=== PATIENT | male | born 1945 | race Caucasian/White ===

== ENCOUNTER 2021-08-29 12:38 | Emergency (ER) | payer MEDICARE, OTHER, SELFPAY ==
[2021-08-29] VITALS (13 sets, daily range): BP systolic 178–231; BP diastolic 87–119; PULSE 77–113; RESP 9–18; TEMP 36.8; O2SAT 97–100
--- NOTE | ~2021-08-29 | CT_ITS ---
EXAMINATION: CT brain wo con DATE: 08/29/2021 13:45 INDICATION: Dizziness. Near-syncope. TECHNIQUE: Computed tomography (CT) of the head was performed without intravenous contrast. The mA wa s adjusted according to patient size. Iterative reconstruction technique was employed. Exam dose: 60 5.33 mGy-cm total exam DLP. COMPARISON: None FINDINGS: No intracranial mass lesion or hemorrhage or cerebrovascular accident. No midline shift or mass effect. There is nonspecific diminished attenuation of the cerebral white matter, likely due to chronic small vessel ischemic changes. There is mild cerebral cortical atrophy, predominating in the frontal regio ns. There is mild focal soft tissue swelling primarily in the posterior aspect of the right sphenoid sinu s. Included paranasal sinuses and the mastoid air cells are otherwise unremarkable. No fracture or bone destruction of the cranial vault. IMPRESSION: Mild cerebral atrophy and chronic nonspecific changes of the white matter likely due to chronic small vessel ischemic changes No acute intracranial finding Reviewed, dictated and finalized at [facility]. Reviewed, dictated and finalized at [facility]. FITTER
--- NOTE | 2021-08-29 12:57 | ECG_ITS ---
Measurements Intervals [place] Rate: 79 P: 55 [place]: 220 QRS: -26 QRSD: 109 T: 38 QT: 371 QTc: 426 Interpretive Statements SINUS RHYTHM WITH FIRST DEGREE AV BLOCK POSSIBLE LEFT ATRIAL ENLARGEMENT INCOMPLETE RIGHT BUNDLE BRANCH BLOCK POSSIBLE LEFT VENTRICULAR HYPERTROPHY BASELINE ARTIFACT- II, III, AVR, AVL, AVF, V1-V6 ABNORMAL ECG Electronically Signed On 08-29-2021 15:16:25 [employer] CONTACT by Power Montelongo D.O.
--- NOTE | 2021-08-29 13:15 | ED.SYNCOPE ---
HPI - Syncope General Chief Complaint: Dizziness Stated Complaint: syncope and HTN Time Seen by Provider: 08/29/21 12:53 Source: patient Mode of arrival: ambulatory Limitations: no limitations History of Present Illness HPI narrative: Patient is a 75-year-old male complaining of feeling faint accompanied by elevated blood pressure that started prior to arrival. Patient denies any syncopal episode. Patient states that he does not have any medical problems, no history of hypertension. Patient states that he is feeling better now, currently denies any symptoms. Patient denies any dizziness, headache, speech or visual disturbance, focal weakness or numbness, chest pain, shortness of breath, abdominal pain, nausea, vomiting, fever or chills. Related Data Allergies Allergy/AdvReac Type Severity Reaction Status Date / Time ampicillin Allergy Unknown Unknown Verified 08/29/21 12:42 Penicillins Allergy Unknown Verified 08/29/21 12:42 Review of Systems Review of Systems: All systems reviewed & are unremarkable except as noted in HPI and below Constitutional: Constitutional: Denies body ache(s), Denies chills, Denies excessive sweating, Denies fatigue, Denies fever(s), Denies headache(s), Denies lethargy, Denies malaise, Denies weakness and Denies weight loss Eyes: Eyes: Denies blurry vision, Denies change in vision and Denies loss of vision ENT: Denies dizziness, Denies ear discharge, Denies headache(s), Denies lip swelling, Denies epistaxis, Denies nasal congestion, Denies neck pain, Denies throat swelling and Denies tongue swelling Cardiovascular: Cardiovascular: Denies chest pain, Denies chest pain at rest, Denies chest pain with activity, Denies diaphoresis, Denies rapid heart rate, Denies edema, Denies irregular heart rhythm, Denies lightheadedness, Denies palpitations, Denies dyspnea and Denies dyspnea on exertion Respiratory: Respiratory: Denies chest congestion, Denies cough, Denies hemoptysis, Denies dyspnea and Denies dyspnea on exertion Gastrointestinal: Gastrointestinal: Denies abdominal pain, Denies melena, Denies hematochezia, Denies diarrhea, Denies nausea, Denies vomiting and Denies hematemesis Musculoskeletal: Musculoskeletal: Denies abnormal gait, Denies deformity, Denies joint swelling, Denies limited range of motion, Denies neck pain and Denies numbness Neurologic: Denies Abnormal speech present, Denies abnormal gait, Denies confusion, Denies dizziness, Denies headache(s), Denies focal weakness, Denies loss of vision, Denies numbness, Denies Other visual disturbances, Denies Sensory deficit (Neuro) and Denies weakness Psychiatric: Psychiatric: Denies confusion, Denies depression, Denies auditory hallucinations, Denies homicidal ideation and Denies suicidal ideation Endocrine: Endocrine: Denies cold intolerance, Denies excessive sweating, Denies fatigue, Denies heat intolerance and Denies palpitations Hematologic/Lymphatic: Hematologic/Lymphatic: Denies easy bleeding and Denies easy bruising Allergic/Immunologic: Allergic/Immunologic: Denies lip swelling, Denies throat swelling and Denies tongue swelling PMFSH Past Medical History Medical History Allergies Dizziness Heartburn High cholesterol Hypertension Snoring Tumor Surgical History Surgical History History of dental surgery Family History Family History Mother Depression Family history of suicide, Onset Age: 71 Cerebrovascular accident Sibling Family history of lymphoma, Onset Age: 71 Father Family history of congestive heart failure, Onset Age: 95 Social History Social History Smoking status: Never smoker Second hand tobacco smoke exposure: No Alcohol intake: never Substance use: never Substance use type: does not us
[2021-08-29 13:21] LABS: Basophils Absolute Auto 0.1 K/mm3 (0.0-0.1); Basophils Percent Auto 0.7 % (0.2-1.2); Eosinophils Absolute Auto 0.3 K/mm3 (0-0.3); Eosinophils Percent Auto 3.9 % (0-4.4); Hematocrit 46.7 % (42.0-52.0); Hemoglobin 15.7 g/dL (14.0-18.0); Immature Granulocyte Absolute 0.04 K/mm3 (0.00-0.031); Immature Granulocyte Percent A 0.5 % (0-0.5); Lymphocytes Percent Auto 13.2 % (18.3-44.2); Mean Corpuscular HGB Conc 33.6 g/dl (32-36); Mean Corpuscular Hemoglobin 29.5 pg (26-34); Mean Corpuscular Volume 87.6 fl (80-100); Mean Platelet Volume 7.8 fl (7.4-10.4); Monocytes Absolute Auto 0.8 K/mm3 (0.1-0.6); Monocytes Percent Auto 9.4 % (2.6-8.5); Neutrophils Percent Auto 72.3 % (45.5-73.1); Platelet Count Result 247 k/mm3 (150-375); Red Blood Count 5.33 M/mm3 (4.6-6.20); Red Cell Distribution Width 12.6 % (11.5-14.5); White Blood Count 8.4 K/mm3 (4.5-10.0)
[2021-08-29] MEDS: LABETALOL HCL INJ 100 MG/20 ML VIAL 20 MG IV PUSH (13:38)
[2021-08-29 13:39] LABS: Anion Gap 8 mmol/L (8-16); Blood Urea Nitrogen 12 mg/dL (9-20); Calcium 9.8 mg/dL (8.4-10.2); Carbon Dioxide 26 mmol/L (22-30); Chloride 103 mmol/L (98-107); Estimated CRCL calculation 82 ml/min; Estimated Glomerular Filt Rate > 60; Glucose 113 mg/dL (65-110); Potassium 4.2 mmol/L (3.4-5.0); Sodium 137 mmol/L (137-145)
[2021-08-29 13:49] LABS: Troponin I < 0.012 ng/mL (0.000-0.034)
[2021-08-29] MEDS: hydrALAZINE HCL 20 MG/ML VIAL 10 MG IV PUSH (15:17)
== END 2021-08-29 16:44 | disposition home or self-care (01) ==
PROVIDERS: Emergency Provider Emergency Medicine; PCP Internal Medicine
DX: I16.0 Hypertensive urgency (principal); E78.00 Pure hypercholesterolemia, unspecified; R12 Heartburn; I44.0 Atrioventricular block, first degree; I45.10 Unspecified right bundle-branch block; R94.31 Abnormal electrocardiogram [ECG] [EKG]
CPT/HCPCS: 36415; 70450; 80048; 84484; 85025; 93005; 96374; 96375; 99284; J0360

== ENCOUNTER 2023-01-10 15:15 | Observation (INO) | payer MEDICARE, OTHER, SELFPAY ==
--- NOTE | ~2023-01-10 | CT_ITS ---
EXAMINATION: CT cervical spine w con DATE: 01/10/2023 17:25 INDICATION: Erythema and midline tenderness to C7. TECHNIQUE: Computed tomography (CT) of the cervical spine was performed with 100 mL Omnipaque-350 int ravenous contrast. Automated exposure control and iterative reconstruction technique were employed. T he dose-length product was 459.36 mGy-cm. COMPARISON: None FINDINGS: 22 degree cervical dextroscoliosis. There is reversal of the normal lordosis in the lower cervical sp ine. Vertebral body heights are normal. No acute fractures. Severe disc height loss with degenerative endplate changes at C4-C5, C6-C7 and C7-T1. Moderate disc height loss at C2-C3, C3-C4, C5-C6 and T1- T2. Mild disc height loss at T2-3. Disc bulge at C3-C4 and posterior endplate osteophytes at C4-C5 th rough C7-T1 resulting in multilevel mild central canal stenosis. There is multilevel severe cervical uncovertebral and left-sided predominant facet osteoarthritis. There is likely fusion across the left C4-C5 and C5-C6 facet joints. This contributes to moderate to severe neural foraminal stenosis on th e left at C3-C4. There is additional mild to moderate left-sided predominant cervical neural foramina l stenosis. Subcutaneous edema surrounding a 3.8 x 3.8 x 2.4 cm loculated rim-enhancing gas and fluid collection in the subcutaneous fat overlying the C7 and T1 spinous processes consistent with abscess and surroun ding cellulitis. Subcutaneous fat remains between the abscess in the posterior margin of the spinous process. Cervical soft tissues are unremarkable. Visualized apices of lungs are clear.. No more remot e soft tissue gas identified. IMPRESSION: 1. 0.8 x 3.8 x 2.4 similar loculated rim-enhancing gas and fluid collection in the subcutaneous fat o verlying C7 and T1 spinous processes consistent with abscess and surrounding cellulitis. 2. Several dextroscoliosis with severe spondylosis. Reviewed, dictated and finalized at [facility]. IMPRESSION: 1. 0.8 x 3.8 x 2.4 similar loculated rim-enhancing gas and fluid collection in the subcutaneous fat overlying C7 and T1 spinous processes consistent with absc ess and surrounding cellulitis. 2. Several dextroscoliosis with severe spondylosis.
[2023-01-10 15:16] VITALS: BP 187/92; PULSE 109; RESP 18; TEMP 36.8; O2SAT 100
--- NOTE | 2023-01-10 16:30 | ED.SKABFB ---
HPI - Skin/Abscess/Foreign Bdy General Chief complaint: Skin/Abscess/Foreign Body Stated complaint: Cyst Time Seen by Provider: 01/10/23 16:15 History of Present Illness HPI narrative: Patient is a 77-year-old male here for evaluation of redness, pain and swelling to his upper back for the past day. Patient states that he has a history of a benign bony tumor and it presented in similar fashion. He states the area is painful to touch and did have some spontaneous white drainage this morning. He denies any fevers, chills, nausea, vomiting, unilateral weakness, numbness or tingling. Related Data Home Medications Medication Instructions Recorded Confirmed aspirin 81 mg tablet,delayed 81 mg PO DAILY 11/14/21 04/28/22 release (Adult Low Dose Aspirin) Allergies Allergy/AdvReac Type Severity Reaction Status Date / Time ampicillin Allergy Unknown Unknown Verified 11/10/22 12:48 Penicillins Allergy Unknown Verified 11/10/22 12:48 valsartan AdvReac Other Verified 11/10/22 12:48 Review of Systems Review of Systems: Gen.: Denies fevers or chills Eyes: Denies eye pain or visual change ENT: Denies congestion Respiratory: Denies shortness of breath or cough CV: Denies chest pain or palpitations GI: Denies abdominal pain nausea, emesis or diarrhea denies burning, urgency, frequency or hematuria Musculoskeletal: Denies back pain or muscle pain Neuro: Denies numbness, tingling, weakness or focal weakness Skin: Reports redness and swelling to back Except as documented, all other systems reviewed and negative PMFSH Past Medical History Medical History Allergies Dizziness Heartburn High cholesterol Hypertension Snoring Tumor Surgical History Surgical History History of dental surgery Family History Family History Mother Depression Family history of suicide, Onset Age: 71 Cerebrovascular accident Sibling Family history of lymphoma, Onset Age: 71 Father Family history of congestive heart failure, Onset Age: 95 Social History Social History Smoking status: Never smoker Second hand tobacco smoke exposure: No Alcohol intake: never Substance use: never Substance use type: does not use Living arrangements: with family Occupation/Education: retired Additional occupation/education comments: Worked for [employer] Gender identity (if verbalized by the patient): Male Exam Narrative: APPEARANCE: Well appearing, no pain in distress, well-nourished. Head: Normocephalic and atraumatic. EYES: PERRLA/EOMI, conjunctivae clear NOSE: No nasal drainage EARS: External ear normal in appearance THROAT: Oropharynx is clear. Mucous membranes are moist. NECK: Supple. No adenopathy, no masses. RESPIRATORY: Airway patent, respirations nonlabored. Clear to auscultation bilaterally, no rales, rhonchi, wheezing. CARDIOVASCULAR: Regular rate and rhythm without murmurs, rubs, or gallops. ABDOMINAL: Normoactive bowel sounds. Soft, nontender, nondistended. No rebound tenderness or guarding. MUSCULOSKELETAL: Extremities are warm and well-perfused. Moves all extremities well. No edema. NEURO: Normal speech. No focal neurologic deficits. SKIN: There is an extensive area of dark red erythema to the midline of the lower cervical and upper thoracic spine that is tender to palpation, measuring 10 x 15 cm. There is no fluctuance to palpation but there is some induration to the center that is tender to palpation, no active drainage or drainage expressed with manipulation PSYCHIATRIC: Normal affect/mood. Course Vital Signs Vital signs: Vital Signs Temperature 98.2 F 01/10/23 15:16 Pulse Rate 109 H 01/10/23 15:16 Respiratory Rate 18 01/10/23 15:16 Blood Pressure 1
[2023-01-10] MEDS: CLINDAMYCIN 600 MG/D5W 50 ML 600 MG/50 ML PIGGYBACK 100 MG IVPB (16:55)
[2023-01-10 17:04] LABS: Basophils Percent Auto 0.2 % (0.2-1.2); Eosinophils Absolute Auto 0.1 K/mm3 (0-0.3); Eosinophils Percent Auto 0.8 % (0-4.4); Hematocrit 42.9 % (42.0-52.0); Hemoglobin 14.2 g/dL (14.0-18.0); Immature Granulocyte Absolute 0.09 K/mm3 (0.00-0.031); Immature Granulocyte Percent A 0.5 % (0-0.5); Lymphocytes Absolute Auto 1.32 K/mm3 (0.9-3.2); Mean Corpuscular HGB Conc 33.1 g/dl (32-36); Mean Corpuscular Hemoglobin 28.6 pg (26-34); Mean Corpuscular Volume 86.3 fl (80-100); Mean Platelet Volume 7.7 fl (7.4-10.4); Monocytes Absolute Auto 1.7 K/mm3 (0.1-0.6); Monocytes Percent Auto 10.1 % (2.6-8.5); Neutrophils Absolute Auto 13.3 K/mm3 (1.3-6.7); Neutrophils Percent Auto 80.4 % (45.5-73.1); Platelet Count Result 262 k/mm3 (150-375); Red Blood Count 4.97 M/mm3 (4.6-6.20); Red Cell Distribution Width 12.5 % (11.5-14.5); White Blood Count 16.5 K/mm3 (4.5-10.0)
[2023-01-10 17:12] LABS: Estimated Glomerular Filt Rate > 60
[2023-01-10 17:15] LABS: Alanine Aminotransferase 23 U/L (6-50); Albumin Level 4.6 g/dL (3.5-5.1); Alkaline Phosphatase 79 U/L (38-126); Anion Gap 8 mmol/L (8-16); Aspartate Amino Transferase 26 U/L (17-59); Bilirubin,Total 0.6 mg/dL (0.2-1.3); Blood Urea Nitrogen 10 mg/dL (9-20); Calcium 9.4 mg/dL (8.4-10.2); Carbon Dioxide 24 mmol/L (22-30); Chloride 102 mmol/L (98-107); Estimated Glomerular Filt Rate > 60; Glucose 115 mg/dL (65-110); Potassium 4.2 mmol/L (3.4-5.0); Sodium 134 mmol/L (137-145)
[2023-01-10 17:45] VITALS: BP 178/99; PULSE 99; RESP 15; O2SAT 98
[2023-01-10] MEDS: SODIUM CHLORIDE 0.9% IV 1,000 ML 999 ML IV CONT (18:31)
[2023-01-10 18:52] LABS: Erythrocyte Sedimentation Rate 45 mm/hr (0-20)
[2023-01-10 19:02] LABS: CRP 5.1 mg/dL (<1.0)
--- NOTE | 2023-01-10 20:04 | PM.IMHP ---
H&P: HPI History of Present Illness Date/Time: 01/10/23 20:04 Chief Complaint: Back abscess Narrative: This is 77-year-old male with past medical history significant for hypertension, GERD, dyslipidemia. Patient presents to the emergency room due to pain and discomfort in his upper back with swelling warmth tenderness and fluctuance present. Patient was found to have an abscess in the subcutaneous tissues is been placed in observation for further evaluation management and treatment. EXAMINATION: CT cervical spine w con DATE: 01/10/2023 17:25 INDICATION: Erythema and midline tenderness to C7. TECHNIQUE: Computed tomography (CT) of the cervical spine was performed with 100 mL Omnipaque-350 intravenous contrast. Automated exposure control and iterative reconstruction technique were employed. The dose-length product was 459.36 mGy-cm. COMPARISON: None FINDINGS: 22 degree cervical dextroscoliosis. There is reversal of the normal lordosis in the lower cervical spine. Vertebral body heights are normal. No acute fractures. Severe disc height loss with degenerative endplate changes at C4-C5, C6-C7 and C7-T1. Moderate disc height loss at C2-C3, C3-C4, C5-C6 and T1-T2. Mild disc height loss at T2-3. Disc bulge at C3-C4 and posterior endplate osteophytes at C4-C5 through C7-T1 resulting in multilevel mild central canal stenosis. There is multilevel severe cervical uncovertebral and left-sided predominant facet osteoarthritis. There is likely fusion across the left C4-C5 and C5-C6 facet joints. This contributes to moderate to severe neural foraminal stenosis on the left at C3-C4. There is additional mild to moderate left-sided predominant cervical neural foraminal stenosis. Subcutaneous edema surrounding a 3.8 x 3.8 x 2.4 cm loculated rim-enhancing gas and fluid collection in the subcutaneous fat overlying the C7 and T1 spinous processes consistent with abscess and surrounding cellulitis. Subcutaneous fat remains between the abscess in the posterior margin of the spinous process. Cervical soft tissues are unremarkable. Visualized apices of lungs are clear.. No more remote soft tissue gas identified. IMPRESSION: 1. 0.8 x 3.8 x 2.4 similar loculated rim-enhancing gas and fluid collection in the subcutaneous fat overlying C7 and T1 spinous processes consistent with abscess and surrounding cellulitis. 2. Several dextroscoliosis with severe spondylosis. Review of Systems Review of Systems: Back abscess, pain, tenderness, redness, warmth, swelling x2 days Constitutional: Constitutional: Denies chills, Denies fatigue, Denies fever(s), Denies malaise, Denies night sweats, Denies poor appetite and Denies weight loss Eyes: Eyes: Denies change in vision ENT: Denies dysphagia, Denies vertigo, Denies dizziness and Denies odynophagia Cardiovascular: Cardiovascular: Denies chest pain, Denies leg edema, Denies radiating jaw, neck or arm pain and Denies palpitations Respiratory: Respiratory: Denies chest congestion, Denies cough and Denies excessive phlegm production Gastrointestinal: Gastrointestinal: Denies abdominal pain, Denies dyspepsia, Denies heartburn, Denies diarrhea, Denies nausea and Denies vomiting Genitourinary: Genitourinary: Denies dysuria Musculoskeletal: Musculoskeletal: Denies myalgias Integumentary/Breasts: Skin/Breast: Reports furuncle, Reports erythema and Reports skin swelling Neurologic: Denies focal weakness and Denies Sensory deficit (Neuro) Psychiatric: Psychiatric: Reports no additional psychiatric complaints and Reports as per HPI Endocrine: Endocrine: Denies cold intolerance, Denies flushing, Denies heat intolerance, Denies polyphagia, Denies polydipsia and Denies palpitations Hematologic/Lymphatic: Hematologic/Lymphatic: Reports no additional hematologic/lymphatic complaints and Reports as per HPI Allergic/Immunologic: Allergic/Immunologic: Reports no additional allergic/immunologic complaints and Reports as per HPI
[2023-01-10 20:30] VITALS: BP 179/84; PULSE 106; RESP 14; TEMP 36.3; O2SAT 99
--- NOTE | 2023-01-10 20:41 | ADMGEN ---
This patient, Manohar Uribe, was admitted to 3 [facility] Surg Room 310-01. Patient/family oriented to hospital policies and general routines including ID bracelet, bed and alarms, visiting hours, pain management, procedures, bathroom and other care routines, personal items, smoking policy, room service/diet, and visiting hours. Information on how to activate the Rapid Response Team has been discussed. Patient/Family are encouraged to report perceived risks to care and to ask questions if they do not understand what they are told or what they should do.
[2023-01-10 20:56] VITALS: BMI 24.5
[2023-01-10 21:30] VITALS: BP 179/84; PULSE 106; RESP 14; TEMP 36.3; O2SAT 99
[2023-01-11] VITALS (14 sets, daily range): BP systolic 145–175; BP diastolic 69–90; PULSE 89–103; RESP 14–18; TEMP 35.8–37.3; O2SAT 97–100
[2023-01-11] MEDS: CLINDAMYCIN 600 MG/D5W 50 ML 600 MG/50 ML PIGGYBACK 100 MG IVPB (00:19)
[2023-01-11] MEDS: ASPIRIN 81 MG CHEWABLE TABLET 40.5 MG PO (08:31)
[2023-01-11] MEDS: lisinopriL 20 MG TABLET PO (08:31)
[2023-01-11] MEDS: CLINDAMYCIN 900 MG/D5W 50 ML 900 MG/50 ML PIGGYBACK 50 MG IVPB (08:33)
--- NOTE | 2023-01-11 10:42 | WPDCN ---
Assessment and Plan Assessment and plan (1) Abscess of back: Code(s): L02.212 - Cutaneous abscess of back [any part, except buttock] Status: Acute Assessment and Plan: Patient has a subcutaneous abscess measuring about 4cm in the upper midline of the back. He would have incision and drainage of the abscess in the operating room under an anesthetic. He has been started on IV antibiotics will get cultures of the abscess. 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 We will plan on taking to the operating room later today for the incision and drainage. Risks, benefits, indications, and expected outcomes were discussed in detail with the patient and/or family. They understand and I have answered all other questions. They wished to proceed with surgery as outlined above. HPI Data of Consult Date/Time: 01/11/23 10:42 Requesting Physician: Mateus Venegas MD Primary Care Provider: Lonny Nath MD Consult Narrative Reason for consult: Back abscess Narrative: Manohar Uribe is a 77 year old male who presented to the emergency room last evening complaining of a 1 to 2 day history of increasing redness pain and swelling in the upper midline. He has had a prior history of MRSA infections in the past he has not had a infection in this particular area in the past. [place] [address]. He was to the hospital for IV antibiotics and surgical evaluation. Review of Systems Review of Systems: The remainder of the review of systems to include constitutional, HEENT, cardiovascular, respiratory, GI, , integumentary, musculoskeletal, endocrine, immunologic, hematologic, psychiatric, and neurologic are all negative except for which is mentioned above in the HPI. FORMERLY [facility], [facility] Past Medical History Medical History Allergies Dizziness Heartburn High cholesterol Hypertension Snoring Tumor Surgical History Surgical History History of dental surgery Family History Family History Mother Depression Family history of suicide, Onset Age: 71 Cerebrovascular accident Sibling Family history of lymphoma, Onset Age: 71 Father Family history of congestive heart failure, Onset Age: 95 Social History Social History Smoking status: Never smoker Second hand tobacco smoke exposure: No Alcohol intake: never Substance use: never Substance use type: does not use Lack of Transportation: No Lack of Food: Never True Current Housing: I Have Housing Concerned About Future Housing: No Difficulty Paying Gas/Electric Bills: No Difficulty Paying for Meds: No Currently Unemployed: No Education: High School Diploma/GED Difficulty w/ Childcare or Family Care: No Living arrangements: with family Occupation/Education: retired Additional occupation/education comments: Worked for [employer] Gender identity (if verbalized by the patient): Male Spiritual care concerns: No Meds Home Medications and Allergies Home Medications Medication Instructions Recorded Confirmed Type aspirin 81 mg tablet,delayed 40 mg PO DAILY 11/14/21 01/10/23 History release (Adult Low Dose Aspirin) lisinopril 20 mg tablet 20 mg PO DAILY 01/10/23 01/10/23 History metoprolol succinate 25 mg 25 mg PO HS 01/10/23 01/10/23 History tablet,extended release 24 hr Allergies Allergy/AdvReac Type Severity Reaction Status Date / Time Penicillins Allergy Intermediate Itching Verified 01/10/23 20:41 ampicillin Allergy Mild Itching Verified 01/10/23 20:41 valsartan AdvReac Mild Other Verified 01/10/23 20:41 Vital Signs Vital Signs - 24 hr 01/10/23 15:16 01/10/23 17:45 01/10/23 20:30 Temperature 36.8 C 36.3 C L Pulse Rate 109 H 99 106 H Respiratory Rate
--- NOTE | 2023-01-11 10:50 | WPDHPUPDATE1 ---
History and Physical Update Update Date/Time: 01/11/23 10:50 History and Physical has been reviewed, including an updated exam of the patient. There are NO changes in the patient's condition. Risks, benefits, and alternatives have been discussed and questions answered. Patient agrees to proceed with procedure.
--- NOTE | 2023-01-11 11:21 | PM.IMPN ---
Progress Note: A&P Assessment and Plan (1) Abscess of skin of neck: Code(s): L02.11 - Cutaneous abscess of neck Status: Acute Assessment and Plan: Initial wbc count 16.5. He is fortunately afebrile at this time and it appears the surrounding erythema is perhaps slightly retracting from the skin marker markings. General surgery is consulted and plan for OR for I/D. With the antibiogram of 73% susceptibility on staph with clinda, will oil change technician to vancomycin today until we have further culture guidance. Have discussed with ID pharmacist this am. (2) High cholesterol: Code(s): E78.00 - Pure hypercholesterolemia, unspecified Status: Acute (3) Hypertension: Code(s): I10 - Essential (primary) hypertension Status: Acute Assessment and Plan: Cont. home lisinopril, metoprolol. Time Spent With Patient Time: >30 minutes with moderate decision making complexity Subjective Date/time seen: 01/11/23 11:21 Interval history: Manohar Uribe is a 77 year old male who developed an abscess on the upper back over the last few days. He presented for care yesterday d/t increasing erythema and cellulitis findings noted by his . Presenting wbc count was 16,[address] showed abscess and gas formation. This morning, Manohar notes the pain is generally well controlled other than with palpation of the area. He notes he feels somewhat better than yesterday. He does not recall having similar infections to this in the past and is unaware of any staph infections historically. Review of Systems Review of Systems: Review of symptoms negative across 12 systems other than as noted in history. Exam Narrative: GENERAL APPEARANCE: Appears to be in no acute distress. HEAD: normocephalic atraumatic EYES: PERRL, EOMI. Vision grossly intact. ENT: Hearing grossly intact, no nasal discharge NECK: Neck supple, trachea midline. CARDIAC: Normal S1/S2. Rhythm is regular. No murmurs, rubs, or gallops. No cyanosis or pallor. Extremities are warm and well perfused. LUNGS: Clear to auscultation without rales, rhonchi, wheezing or diminished breath sounds. Respirations even and unlabored. ABDOMEN: BS positive x 4 quadrants. Soft, nondistended, nontender. No guarding or rebound. MSK: No joint tenderness/swelling, fair strength in all extremities. PERIPHERAL VASCULAR: Peripheral pulses palpable. Normal perfusion, cap refill <2 seconds. No edema. NEURO: Follows commands. No focal deficits. SKIN: A 4cm well circumbscribed fluctuant abscess is noted on the upper back. There is surrounding erythema and noted warmth. PSYCH: Stable, no paranoia or delusional thinking. Objective Data Vital Signs Vital Signs: Vital Signs - 24 hr 01/10/23 15:16 01/10/23 17:45 01/10/23 20:30 Temperature 98.2 F 97.4 F L Pulse Rate 109 H 99 106 H Respiratory Rate 18 15 14 Blood Pressure 187/92 H 178/99 H 179/84 H Pulse Oximetry 100 98 99 Oxygen Delivery Room Air 01/10/23 21:30 01/11/23 00:30 01/11/23 06:00 Temperature 97.4 F L 97.7 F 96.8 F L Pulse Rate 106 H 99 103 H Respiratory Rate 14 14 16 Blood Pressure 179/84 H 150/81 H 175/83 H Pulse Oximetry 99 100 99 Oxygen Delivery 01/11/23 08:10 01/11/23 08:00 Temperature Pulse Rate 89 Respiratory Rate Blood Pressure Pulse Oximetry 98 Oxygen Delivery Room Air Room Air Intake/Output Intake/Output: Intake & Output 01/08/23 01/09/23 01/10/23 01/11/23 23:59 23:59 23:59 23:59 Intake Total 1050 840 Balance 1050 840 Meds/Results Medications: Active Medications Generic Name Dose Route Start Last Admin Trade Name Freq PRN Reason Stop Dose Admin Acetaminophen 1,000 mg 01/11/23 04:09 Acetaminophen 500 Mg Tablet PO Q6H PRN Mild Pain (1-3) or Fever Al Hydrox/Mg Hydrox/Simethicone 30 ml 01/11/23 04:09 Mag Hydrox/Al Hydrox/Simeth 30 Ml Udc PO Q6H PRN Indigestion Aspirin 40.5 mg 01/11/23 08:00 01/11/23 08:31 A
[2023-01-11] MEDS: VANCOMYCIN 1,250 MG/NS 250 ML 1,250 MG/250 ML BAG 166.67 MG IVPB (12:07)
--- NOTE | 2023-01-11 16:10 | WPDANESEPPF ---
Anes - Initial Pre Proc Eval Procedure: Operation Date: 01/11/23 16:15 Proposed Procedures p Incision and Debridement Upper Back Abscess - Robson Somers MD Date/Time: 01/11/23 16:10 Surgeon: Mateus Venegas MD Pre Op Diagnosis: Abscess to neck Patient Data Age: 77 Gender: M Height: 1.88 m Weight: 86.7 kg Last Vital Signs Temp 36.8 C 01/11/23 16:00 Pulse 102 H 01/11/23 16:00 Resp 16 01/11/23 16:00 BP 163/79 H 01/11/23 16:00 Pulse Ox 98 01/11/23 16:00 O2 Del Method Room Air 01/11/23 16:00 Allergies Allergy/AdvReac Type Severity Reaction Status Date / Time Penicillins Allergy Intermediate Itching Verified 01/10/23 20:41 ampicillin Allergy Mild Itching Verified 01/10/23 20:41 valsartan AdvReac Mild Other Verified 01/10/23 20:41 Home Medications Medication Instructions Recorded Confirmed Type aspirin 81 mg tablet,delayed 40 mg PO DAILY 11/14/21 01/10/23 History release (Adult Low Dose Aspirin) lisinopril 20 mg tablet 20 mg PO DAILY 01/10/23 01/10/23 History metoprolol succinate 25 mg 25 mg PO HS 01/10/23 01/10/23 History tablet,extended release 24 hr Laboratory Tests 01/10/23 01/10/23 01/10/23 16:54 17:10 18:39 WBC 16.5 H K/mm3 (4.5-10.0) RBC 4.97 M/mm3 (4.6-6.20) Hgb 14.2 g/dL (14.0-18.0) Hct 42.9 % (42.0-52.0) MCV 86.3 fl (80-100) MCH 28.6 pg (26-34) MCHC 33.1 g/dl (32-36) RDW 12.5 % (11.5-14.5) Plt Count 262 k/mm3 (150-375) MPV 7.7 fl (7.4-10.4) Immature Gran % (Auto) 0.5 % (0-0.5) Neut % (Auto) 80.4 H % (45.5-73.1) Lymph % (Auto) 8.0 L % (18.3-44.2) Cedar % (Auto) 10.1 H % (2.6-8.5) Eos % (Auto) 0.8 % (0-4.4) Baso % (Auto) 0.2 % (0.2-1.2) Lymph # (Auto) 1.32 K/mm3 (0.9-3.2) Cedar # (Auto) 1.7 H K/mm3 (0.1-0.6) Eos # (Auto) 0.1 K/mm3 (0-0.3) Baso # (Auto) 0.0 K/mm3 (0.0-0.1) Abs Immat Gran (auto) 0.09 H K/mm3 (0.00-0.031) Absolute Neuts (auto) 13.3 H K/mm3 (1.3-6.7) Absolute Nucleated RBC 0.0 K/mm3 (0.0-0.012) Nucleated RBC % 0.0 % (0.0-0.2) ESR 45 H mm/hr (0-20) Sodium 134 L mmol/L (137-145) Potassium 4.2 mmol/L (3.4-5.0) Chloride 102 mmol/L (98-107) Carbon Dioxide 24 mmol/L (22-30) Anion Gap 8 mmol/L (8-16) BUN 10 mg/dL (9-20) Creatinine 0.70 mg/dL 0.70 L mg/dL (0.7-1.3) (0.8-1.5) Estim Creat Clear Calc Not Reportable Not Reportable Estimated GFR > 60 > 60 (59 - ) (59 - ) Glucose 115 H mg/dL (65-110) Lactic Acid 1.0 mmol/L (0.7-2.0) Calcium 9.4 mg/dL (8.4-10.2) Total Bilirubin 0.6 mg/dL (0.2-1.3) AST 26 U/L (17-59) ALT 23 U/L (6-50) Alkaline Phosphatase 79 U/L (38-126) C-Reactive Protein 5.1 H mg/dL (<1.0) Total Protein 8.0 g/dL (6.3-8.2) Albumin 4.6 g/dL (3.5-5.1) Patient hx anesthesia problems: none Family hx anesthesia problems: none Results Review: All pre-operative results and documents have been reviewed as part of the pre-operative evaluation. [facility] Past Medical History Medical History Allergies Dizziness Heartburn High cholesterol Hypertension Snoring Tumor Surgical History Surgical History History of dental surgery Family History Family History Mother Depression Family history of suicide, Onset Age: 71 Cerebrovascular accident Sibling Family history of lymphoma, Onset Age: 71 Father Family history of congestive heart failure, Onset Age:
[2023-01-11] MEDS: LACTATED RINGERS 1,000 ML 30 ML IV CONT ×2 (16:16→17:34)
[2023-01-11] MEDS: LIDO 1%/EPINEPHRINE 1:100,000 50 ML VIAL 20 ML INFILTRATE (17:26)
[2023-01-11] MEDS: BUPivacaine HCL 0.5% 10 ML AMP 20 ML INFILTRATE (17:30)
--- NOTE | 2023-01-11 17:37 | W.PM.PROC2 ---
Procedure Note - Detailed Date of Procedure 01/11/23 Pre-op Diagnosis Mid upper back infected sebaceous cyst with abscess Post-op Diagnosis Same Procedure Performed Incision and drainage of infected mid upper back sebaceous cyst and abscess Surgeon Robson Somers MD Occupational Health Rn HEATHER [facility] Anesthesia General Indications Patient is a 77-year-old gentleman who presented to the emergency room yesterday with 2 day history of increasing redness pain and swelling in the upper mid back region. On examination had an abscessed area with associated cellulitis. Elevated white blood cell count but was not tachycardic. There was admitted to the hospital for IV antibiotics and on examination he has infected sebaceous cyst with associated abscess and cellulitis. He presents now for incision and drainage of the abscess. Findings 4cm infected sebaceous cyst with surrounding erythema and induration. Description of Procedure After informed consent was obtained patient brought to the operating room was placed supine position on the gurney and then placed under general endotracheal anesthesia. He was then turned in the prone position on operating table making sure that all the pressure points were well padded. The area the upper mid back region was then prepped and draped in usual sterile fashion. A time-out was then performed correctly identifying the patient as well as the procedure to be performed. He was already on scheduled IV antibiotics. I then made a transverse incision with a scalpel the most fluctuant portion of the abscess. There was prompt drainage of about 5 to 10 cc of pus and a culture swab was obtained of the abscess cavity sent to microbiology for aerobic, anaerobic, and Gram stain. I then had my index finger into the abscess cavity and cyst and broke down any loculations. I then suctioned out and removed the infected sebaceous material within the cyst. Once this is done I then irrigated out the cyst with copious amounts of sterile saline solution. A portion of the cyst wall was removed but there still was a portion that was left in place. Hemostasis was then achieved electrocautery and then the area around the cyst was a anesthetized utilizing 1% lidocaine mixed with 0.5% Marcaine 50 50 mixture with some epinephrine. I then packed the wound with half-inch iodoform gauze. The wound was then covered with dry gauze and ABD pad and hypoallergenic tape. The patient tolerated the procedure well no complications. All sponges, needles, and instrument counts were correct at the end procedure. EBL was __10_cc. The patient was awakened and taken to recovery in stable and satisfactory condition. Implants None Estimated Blood Loss 10 Urine Output 250 Drains No Packing Yes (Inch iodoform gauze the abscess cavity) Pathology Other (Wound swab sent to microbiology for Gram stain, aerobic and anaerobic cultures) Complications No immediate complications Condition Stable Disposition PACU [facility] Billing Surgery - Charge Forward: Surgery Billing
[2023-01-11] MEDS: METOPROLOL SUCCINATE EXT REL 25 MG TABCR PO (20:02)
[2023-01-11] MEDS: VANCOMYCIN 1,250 MG/NS 250 ML 1,250 MG/250 ML BAG 166 MG IVPB (23:12)
[2023-01-12] VITALS (10 sets, daily range): BP systolic 152–188; BP diastolic 76–106; PULSE 70–96; RESP 18–20; TEMP 35.9–37.1; O2SAT 98–100
[2023-01-12 06:04] LABS: Hematocrit 41.7 % (42.0-52.0); Hemoglobin 13.6 g/dL (14.0-18.0); Mean Corpuscular HGB Conc 32.6 g/dl (32-36); Mean Corpuscular Hemoglobin 28.9 pg (26-34); Mean Corpuscular Volume 88.7 fl (80-100); Mean Platelet Volume 7.9 fl (7.4-10.4); Platelet Count Result 259 k/mm3 (150-375); Red Cell Distribution Width 12.6 % (11.5-14.5); White Blood Count 14.1 K/mm3 (4.5-10.0)
[2023-01-12 06:18] LABS: Anion Gap 8 mmol/L (8-16); Blood Urea Nitrogen 13 mg/dL (9-20); Calcium 8.9 mg/dL (8.4-10.2); Carbon Dioxide 23 mmol/L (22-30); Chloride 107 mmol/L (98-107); Estimated CRCL calculation 80 ml/min; Estimated Glomerular Filt Rate > 60; Glucose 133 mg/dL (65-110); Potassium 4.1 mmol/L (3.4-5.0); Sodium 138 mmol/L (137-145)
--- NOTE | 2023-01-12 07:55 | WPDANESPN ---
Anes - Prog Note Post-Op Date/Time: 01/12/23 07:55 Vital Signs: Last Vital Signs Temp 36.5 C 01/12/23 04:17 Pulse 86 01/12/23 04:17 Resp 18 01/12/23 04:17 BP 188/85 H 01/12/23 04:17 Pulse Ox 100 01/12/23 04:17 O2 Del Method Room Air 01/11/23 20:00 O2 Flow Rate 10 01/11/23 17:34 Pain Score (VAS): 2 I/O: Intake & Output 01/11/23 01/11/23 01/12/23 15:59 23:59 07:59 Intake Total 1330 240 550 Output Total 248 929 7248 Balance 505 -104 -644 Laboratory Tests 01/12/23 05:44 01/12/23 05:44 01/12/23 05:44 WBC 14.1 H RBC 4.70 Hgb 13.6 L Hct 41.7 L MCV 88.7 MCH 28.9 MCHC 32.6 RDW 12.6 Plt Count 259 MPV 7.9 Sodium 138 Potassium 4.1 Chloride 107 Carbon Dioxide 23 Anion Gap 8 BUN 13 Creatinine 0.80 Estim Creat Clear Calc 80 Estimated GFR > 60 Glucose 133 H Calcium 8.9 Microbiology 01/10/23 18:47 Blood Blood Culture - Preliminary 01/10/23 18:39 Blood Blood Culture - Preliminary Patient Feedback: Patient satisfied with anesthetic care.
[2023-01-12] MEDS: lisinopriL 20 MG TABLET PO (08:59)
[2023-01-12] MEDS: ASPIRIN 81 MG CHEWABLE TABLET 40.5 MG PO (08:59)
[2023-01-12] MEDS: ENOXAPARIN 40 MG/0.4 ML SYRINGE SUB-Q (09:00)
--- NOTE | 2023-01-12 09:50 | PM.PNGS ---
Progress Note: A&P Assessment and Plan (1) Abscess of back: Code(s): L02.212 - Cutaneous abscess of back [any part, except buttock] Status: Acute Assessment and Plan: Status post drainage. Wound is improving. Can you IV antibiotics today as his white blood cell count is still 14,000. Likely can discharge home tomorrow buttocks. Wound cultures are still pending. Dressing changes we talked to the patient's today at the bedside she feels comfortable performing the dressing changes at home. Will have a follow-up see me my office in 1 to 2 weeks. Subjective Subjective Date/Time Seen: 01/12/23 09:50 Post Op day: 1 (Status post incision and drainage of large infected sebaceous cyst on upper back) Interval history: Patient much improved today. Much less pain in the mid upper back. No fever tachycardia. [place] [address] down to 14,000 today. Exam Skin: Other: Mid upper back drained abscess with bloody serous drainage. No purulent fluid. Still erythematous but improved and induration is markedly improved. No residual fluctuance. Objective Data Vital Signs Vital Signs: Vital Signs - 24 hr 01/11/23 14:00 01/11/23 16:00 01/11/23 17:34 Temperature 36.2 C L 36.8 C 37.3 C Pulse Rate 92 102 H 99 Respiratory Rate 16 16 16 Blood Pressure 175/90 H 163/79 H 161/75 H Pulse Oximetry 100 98 99 Oxygen Delivery Room Air Simple Face Mask Oxygen Flow Rate 10 01/11/23 17:45 01/11/23 18:00 01/11/23 18:13 Temperature Pulse Rate 91 95 91 Respiratory Rate 15 15 15 Blood Pressure 158/80 H 156/77 H 146/78 H Pulse Oximetry 100 98 98 Oxygen Delivery Room Air Room Air Room Air Oxygen Flow Rate 01/11/23 18:32 01/11/23 18:46 01/11/23 20:02 Temperature 36.6 C 36.3 C L Pulse Rate 91 97 96 Respiratory Rate 18 18 Blood Pressure 145/69 H 160/73 H Pulse Oximetry 99 97 Oxygen Delivery Oxygen Flow Rate 01/11/23 19:15 01/11/23 20:15 01/11/23 20:00 Temperature 36.3 C L 35.8 C L Pulse Rate 95 91 Respiratory Rate 18 18 Blood Pressure 148/74 H 148/73 H Pulse Oximetry 98 97 Oxygen Delivery Room Air Oxygen Flow Rate 01/12/23 00:01 01/12/23 04:17 01/12/23 08:06 Temperature 35.9 C L 36.5 C 36.6 C Pulse Rate 79 86 80 Respiratory Rate 18 18 20 Blood Pressure 152/77 H 188/85 H 171/76 H Pulse Oximetry 99 100 100 Oxygen Delivery Oxygen Flow Rate Intake/Output Intake/Output: Intake & Output 01/09/23 01/10/23 01/11/23 01/12/23 23:59 23:59 23:59 23:59 Intake Total 1050 2120 1030 Output Total 1575 1400 Balance 1050 545 -370 Meds/Results Medications: Active Medications Generic Name Dose Route Start Last Admin Trade Name Freq PRN Reason Stop Dose Admin Acetaminophen 1,000 mg 01/11/23 04:09 Acetaminophen 500 Mg Tablet PO Q6H PRN Mild Pain (1-3) or Fever Hydrocodone Bitart/Acetaminophen 1 tab 01/11/23 18:15 Hydrocodone/Acetaminophen (*Crx) 5-325 Mg Tablet PO Q4H PRN Pain Rated 4-6 Al Hydrox/Mg Hydrox/Simethicone 30 ml 01/11/23 04:09 Mag Hydrox/Al Hydrox/Simeth 30 Ml Udc PO Q6H PRN Indigestion Aspirin 40.5 mg 01/11/23 08:00 01/12/23 08:59 Aspirin 81 Mg Chewable Tablet PO 40.5 mg DAILY@0800 ALE Administration Enoxaparin Sodium 40 mg 01/12/23 09:00 01/12/23 09:00 Enoxaparin 40 Mg/0.4 Ml Syringe SUB-Q 40 mg DAILY ALE Administration Fentanyl Citrate 25 mcg 01/11/23 16:10 Fentanyl Citrate Inj (*Crx) 100 Mcg/2 Ml Vial IV PUSH Q2M PRN Pain Vancomycin HCl 1,250 mg in 250 mls @ 166.667 mls/hr 01/11/23 12:00 01/11/23 23:12 Vancomycin 1,250 Mg/Ns 250 Ml IVPB 166 mls/hr Q12H ALE Administration Lactated Ringer's 1,000 mls @ 30 mls/hr 01/11/23 16:10 01/11/23 16:16 Lr - Lactated Ringers Iv IV CONT 30 mls/hr .Q24H ALE Administration Lactated Ringer's 1,000 mls @ 30 mls/hr 01/11/23 16:10 01/11/23 17:34 Lr - Lactated Ringers Iv I
--- NOTE | 2023-01-12 11:15 | PM.IMPN ---
Progress Note: A&P Assessment and Plan (1) Abscess of skin of neck: Code(s): L02.11 - Cutaneous abscess of neck Status: Acute Assessment and Plan: POD 1 Started on clindamycin Cultures in progress General surgery consult Supportive care Continue to monitor (2) Hypertension: Qualifiers: Hypertension type: primary hypertension Qualified Code(s): I10 - Essential (primary) hypertension Code(s): I10 - Essential (primary) hypertension Status: Acute Assessment and Plan: BP is 171/76 Add amlodipine and continue home medications Trend Adjust as indicated Time Spent With Patient Time: 35 minutes Time with patient: Greater than 35 minutes Subjective Date/time seen: 01/12/23 111 Interval history: 01/12/231114 Patient was walking the halls with his . Patient has been doing well has no complaints today. Patient stated his pain is under control he does have some constipation which he states he takes Metamucil at home 4. Blood pressure appears to be a little high. Will start amlodipine. Manohar Uribe is a 77 year old male who developed an abscess on the upper back over the last few days. He presented for care yesterday d/t increasing erythema and cellulitis findings noted by his . Presenting wbc count was 16,[address] showed abscess and gas formation. This morning, Manohar notes the pain is generally well controlled other than with palpation of the area. He notes he feels somewhat better than yesterday. He does not recall having similar infections to this in the past and is unaware of any staph infections historically. Review of Systems Review of Systems: All systems reviewed & are unremarkable except as noted in HPI and below Endocrine: Endocrine: Denies polyphagia Exam Narrative: General: well-nourished, well-appearing [id number] male, walking the halls, comfortable, NARD Neuro: awake, alert and oriented x4, speech clear, no focal neuro deficits noted HEENMT: normocephalic, atraumatic, EOMI, sclerae anicteric, moist oral mucosa Respiratory: Clear to auscultation bilaterally without crackles, rhonchi or wheezes, nonlabored breathing Cardio: regular rate, regular rhythm with S1-S2 Abdomen: nondistended, normoactive bowel sounds, soft, nontender to palpation Extremities: no edema, erythema, or tenderness to palpation, DP pulses 2+ bilaterally Skin: no rashes or lesions, warm and dry, wound noted to his upper back covered with a dressing that is dry clean intact Psych: appropriate mood and affect, judgment and insight intact Objective Data Vital Signs Vital Signs: Vital Signs - 24 hr 01/11/23 17:34 01/11/23 17:45 01/11/23 18:00 Temperature 99.2 F Pulse Rate 99 91 95 Respiratory Rate 16 15 15 Blood Pressure 161/75 H 158/80 H 156/77 H Pulse Oximetry 99 100 98 Oxygen Delivery Simple Face Mask Room Air Room Air Oxygen Flow Rate 10 01/11/23 18:13 01/11/23 18:32 01/11/23 18:46 Temperature 97.8 F 97.3 F L Pulse Rate 91 91 97 Respiratory Rate 15 18 18 Blood Pressure 146/78 H 145/69 H 160/73 H Pulse Oximetry 98 99 97 Oxygen Delivery Room Air Oxygen Flow Rate 01/11/23 20:02 01/11/23 19:15 01/11/23 20:15 Temperature 97.3 F L 96.4 F L Pulse Rate 96 95 91 Respiratory Rate 18 18 Blood Pressure 148/74 H 148/73 H Pulse Oximetry 98 97 Oxygen Delivery Oxygen Flow Rate 01/11/23 20:00 01/12/23 00:01 01/12/23 04:17 Temperature 96.7 F L 97.7 F Pulse Rate 79 86 Respiratory Rate 18 18 Blood Pressure 152/77 H 188/85 H Pulse Oximetry 99 100 Oxygen Delivery Room Air Oxygen Flow Rate 01/12/23 08:06 01/12/23 09:00 01/12/23 12:09 Temperature 97.8 F 97.2 F L Pulse Rate 80 83 Respiratory Rate 20 20 Blood Pressure 171/76 H 160/80 H Pulse Oximetry 100 99 Oxygen Delivery Room Air Oxygen Flow Rate 01/12/23 15:57 Temperature 98.8 F Pulse Rate 96 Respiratory Rate 20 Blood Pre
[2023-01-12] MEDS: VANCOMYCIN 1,250 MG/NS 250 ML 1,250 MG/250 ML BAG 166 MG IVPB (13:50)
[2023-01-12] MEDS: amLODIPine BESYLATE 5 MG TABLET PO (18:04)
[2023-01-12] MEDS: METOPROLOL SUCCINATE EXT REL 25 MG TABCR PO (21:48)
--- NOTE | 2023-01-12 22:17 | PC.NURSE ---
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
[2023-01-12] MEDS: hydrALAZINE HCL 20 MG/ML VIAL 10 MG IV PUSH (22:33)
--- NOTE | 2023-01-12 23:59 | PC.NURSE ---
called lab assistance and main lab about vancomycin trough main lab does nt have sample and lab assistance state draw lab earlier, awaiting results for vancomycin dosing.
--- NOTE | 2023-01-13 00:08 | PC.NURSE ---
main lab found sample for vancomycin trough
[2023-01-13 00:28] VITALS: BP 182/84; PULSE 83; RESP 18; TEMP 36.6; O2SAT 99
[2023-01-13 00:31] LABS: Vancomycin Trough 12.1 ug/mL (10.0-20.0)
--- NOTE | 2023-01-13 00:48 | PC.NURSE ---
reported vancomycin trough to pharmacist 12.1 awaiting vancomycin dose
[2023-01-13] MEDS: VANCOMYCIN 1,250 MG/NS 250 ML 1,250 MG/250 ML BAG 166 MG IVPB (01:42)
[2023-01-13 03:50] VITALS: BP 163/84; PULSE 76; RESP 18; TEMP 36.6; O2SAT 98
[2023-01-13 06:03] LABS: Hematocrit 40.7 % (42.0-52.0); Hemoglobin 13.4 g/dL (14.0-18.0); Mean Corpuscular HGB Conc 32.9 g/dl (32-36); Mean Corpuscular Hemoglobin 28.8 pg (26-34); Mean Corpuscular Volume 87.3 fl (80-100); Mean Platelet Volume 8.1 fl (7.4-10.4); Platelet Count Result 296 k/mm3 (150-375); Red Blood Count 4.66 M/mm3 (4.6-6.20); Red Cell Distribution Width 12.6 % (11.5-14.5); White Blood Count 10.4 K/mm3 (4.5-10.0)
[2023-01-13 06:10] LABS: Estimated CRCL calculation 103 ml/min; Estimated Glomerular Filt Rate > 60
[2023-01-13 08:04] VITALS: BP 182/99; PULSE 107; RESP 22; TEMP 36.3; O2SAT 100
--- NOTE | 2023-01-13 08:44 | PM.IMPN ---
Subjective Date/time seen: 01/13/23 08:44 Objective Data Vital Signs Vital Signs: Vital Signs - 24 hr 01/12/23 09:00 01/12/23 12:09 01/12/23 15:57 Temperature 97.2 F L 98.8 F Pulse Rate 83 96 Respiratory Rate 20 20 Blood Pressure 160/80 H 180/93 H Pulse Oximetry 99 100 Oxygen Delivery Room Air 01/12/23 19:40 01/12/23 21:48 01/12/23 20:00 Temperature 97.7 F Pulse Rate 85 70 70 Respiratory Rate 18 18 Blood Pressure 160/106 H Pulse Oximetry 98 98 Oxygen Delivery Room Air 01/12/23 22:14 01/12/23 22:18 01/13/23 00:28 Temperature 97.7 F 97.9 F Pulse Rate 70 83 Respiratory Rate 18 18 Blood Pressure 183/89 H 183/89 H 182/84 H Pulse Oximetry 98 99 Oxygen Delivery Room Air 01/13/23 03:50 01/13/23 07:30 01/13/23 08:04 Temperature 97.9 F 97.3 F L Pulse Rate 76 107 H Respiratory Rate 18 22 H Blood Pressure 163/84 H 182/99 H Pulse Oximetry 98 100 Oxygen Delivery Room Air Intake/Output Intake/Output: Intake & Output 01/10/23 01/11/23 01/12/23 01/13/23 23:59 23:59 23:59 23:59 Intake Total 1050 2120 2490 750 Output Total 1575 2150 1900 Balance 1050 545 340 -1150 Meds/Results Medications: Active Medications Generic Name Dose Route Start Last Admin Trade Name Joseq PRN Reason Stop Dose Admin Acetaminophen 1,000 mg 01/11/23 04:09 Acetaminophen 500 Mg Tablet PO Q6H PRN Mild Pain (1-3) or Fever Hydrocodone Bitart/Acetaminophen 1 tab 01/11/23 18:15 Hydrocodone/Acetaminophen (*Crx) 5-325 Mg Tablet PO Q4H PRN Pain Rated 4-6 Al Hydrox/Mg Hydrox/Simethicone 30 ml 01/11/23 04:09 Mag Hydrox/Al Hydrox/Simeth 30 Ml Udc PO Q6H PRN Indigestion Amlodipine Besylate 10 mg 01/13/23 09:00 Amlodipine Besylate 5 Mg Tablet PO QAM [facility] Aspirin 40.5 mg 01/11/23 08:00 01/12/23 08:59 Aspirin 81 Mg Chewable Tablet PO 40.5 mg DAILY@0800 [facility] Administration Enoxaparin Sodium 40 mg 01/12/23 09:00 01/12/23 09:00 Enoxaparin 40 Mg/0.4 Ml Syringe SUB-Q 40 mg DAILY [facility] Administration Fentanyl Citrate 25 mcg 01/11/23 16:10 Fentanyl Citrate Inj (*Crx) 100 Mcg/2 Ml Vial IV PUSH Q2M PRN Pain Hydralazine HCl 10 mg 01/12/23 22:16 01/12/23 22:33 Hydralazine Hcl 20 Mg/Ml Vial IV PUSH 10 mg Q8H PRN Administration Blood Pressure - High Vancomycin HCl 1,250 mg in 250 mls @ 166.667 mls/hr 01/11/23 12:00 01/13/23 03:13 Vancomycin 1,250 Mg/Ns 250 Ml IVPB Infused Q12H [facility] Infusion Lisinopril 20 mg 01/11/23 09:00 01/12/23 08:59 Lisinopril 20 Mg Tablet PO 20 mg DAILY [facility] Administration Metoprolol Succinate 50 mg 01/13/23 21:00 Metoprolol Succinate Ext Rel 50 Mg Tabcr PO HS [facility] Morphine Sulfate 4 mg 01/11/23 18:15 Morphine Sulfate (*Crx) 4 Mg/Ml Inj IV PUSH Q4H PRN Pain Rated 7-10 Ondansetron HCl 4 mg 01/11/23 04:09 Ondansetron Inj 4 Mg/2 Ml Vial IV PUSH Q6H PRN Nausea And Vomiting Ondansetron HCl 4 mg 01/11/23 16:10 Ondansetron Inj 4 Mg/2 Ml Vial IV PUSH ONCE PRN Nausea Polyethylene Glycol 17 gm 01/11/23 04:09 Polyethylene Glycol 3350 17 Gm Powd.Pack PO QAM PRN Constipation Tramadol HCl 25 mg 01/11/23 04:10 Tramadol Hcl (*Crx) 25 Mg Tablet PO Q6H PRN Pain Rated 4-6 Radiology Results: ITS Impressions Cervical Spine CT 01/10/23 17:40 IMPRESSION: 1. 0.8 x 3.8 x 2.4 similar loculated rim-enhancing gas and fluid collection in the subcutaneous fat overlying C7 and T1 spinous processes consistent with abscess and surrounding cellulitis. 2. Several dextroscoliosis with severe spondylosis. Labs Labs: Laboratory Results - last 24 hr 01/12/23 01/13/23 23:43 05:18 WBC 10.4 H RBC 4.66 Hgb 13.4 L Hct 40.7 L MCV 87.3 MCH 28.8 MCHC 32.9 RDW 12.6 Plt Count 296 MPV 8.1 Creatinine 0.60 L Estim Creat Clear Calc 103 Estimated GFR > 60 Va
[2023-01-13 08:57] LABS: NT Pro B Type Natriuretic Pept 323 pg/mL (19.9-100)
[2023-01-13] MEDS: ENOXAPARIN 40 MG/0.4 ML SYRINGE SUB-Q (09:26)
[2023-01-13] MEDS: ASPIRIN 81 MG CHEWABLE TABLET 40.5 MG PO (09:26)
[2023-01-13] MEDS: lisinopriL 20 MG TABLET PO (09:27)
[2023-01-13] MEDS: amLODIPine BESYLATE 5 MG TABLET 10 MG PO (09:28)
[2023-01-13 09:30] VITALS: BP 140/76; PULSE 80
--- NOTE | 2023-01-13 10:15 | PM.DS ---
DS: Admitting Diagnosis Discharge Date 01/13/23 0945 Admitting Diagnosis Skin abscess, hypertension DS: Discharge Diagnosis Discharge Diagnosis (1) Abscess of skin of neck: Code(s): L02.11 - Cutaneous abscess of neck Status: Acute Assessment and Plan: POD 2 currently on vanco, switch to PO Bactrim Cultures in progress General surgery consult Supportive care Continue to monitor (2) Hypertension: Qualifiers: Hypertension type: primary hypertension Qualified Code(s): I10 - Essential (primary) hypertension Code(s): I10 - Essential (primary) hypertension Status: Acute Assessment and Plan: BP is 182/99, 140/76 Add amlodipine and continue home medications Increase metoprolol to 50mg PO daily Trend Adjust as indicated DS: Summary Hospital Course Hospital Course: patient is a 77-year-old male with past medical history of hypertension who presented the ED with complaints pain and discomfort in his upper back with swelling warmth, tenderness. General surgery was consulted and patient was taken to the OR for abscess incision and drainage. Patient started off on IV clindamycin which was changed to IV vancomycin with wound cultures growing g positive cocci in clusters. [place] [address] is currently 10.4. Blood pressure is noted to be little elevated however it seems to be more situational environmental. Patient denies any current chest pain, shortness a breath, nausea, vomiting, diarrhea or constipation. Patient stated that he had is 0 added 10 pain. Labs and vital signs are stable patient is stable for discharge at this time. Patient's was shown how to change dressing and packed the wound. She is a former nurse. All questions were answered and plan of care has been updated. Status at Discharge Functional status at discharge: independent ambulation Time Spent with Patient Time attestation: Total time spent providing and/or coordinating discharge services: 43 minutes Time spent: Greater than 30 minutes Specific discharge activities: Diagnostic testing, chart review, developing a treatment plan, education, care coordination documentation, physical exam, result review Exam Narrative: General: well-nourished, well-appearing 77-year-old male, walking the halls, comfortable, NARD Neuro: awake, alert and oriented x4, speech clear, no focal neuro deficits noted HEENMT: normocephalic, atraumatic, EOMI, sclerae anicteric, moist oral mucosa Respiratory: Clear to auscultation bilaterally without crackles, rhonchi or wheezes, nonlabored breathing Cardio: regular rate, regular rhythm with S1-S2 Abdomen: nondistended, normoactive bowel sounds, soft, nontender to palpation Extremities: no edema, erythema, or tenderness to palpation, DP pulses 2+ bilaterally Skin: no rashes or lesions, warm and dry, well approximated slit with purple area around the opening, stable, clean and dry Psych: appropriate mood and affect, judgment and insight intact DS: Data Data Completed and Pending Labs on day of discharge: Labs from last 24 hours 01/13/23 01/13/23 01/12/23 05:18 05:15 23:43 WBC 10.4 H RBC 4.66 Hgb 13.4 L Hct 40.7 L MCV 87.3 MCH 28.8 MCHC 32.9 RDW 12.6 Plt Count 296 MPV 8.1 Creatinine 0.60 L Estim Creat Clear Calc 103 Estimated GFR > 60 NT-Pro-B Natriuret Pep Pending Vancomycin Trough 12.1 Preliminary micro results at discharge 01/11/23 17:21 Anaerobic Culture - Preliminary Abscess Aerobic Culture - Preliminary 01/10/23 18:47 Blood Culture - Preliminary Blood 01/10/23 18:39 Blood Culture - Preliminary Blood Discharge Plan Discharge Attending physician on discharge: Aubrey Simpson Consulting providers: Robson Somers Discharging Clinician: Giovanny Dooley Patient Disposition: Home Health Service Activity: november shower Diet: regular
[2023-01-13 10:51] LABS: Anion Gap 7 mmol/L (8-16); Blood Urea Nitrogen 12 mg/dL (9-20); Calcium 8.8 mg/dL (8.4-10.2); Carbon Dioxide 24 mmol/L (22-30); Chloride 106 mmol/L (98-107); Estimated CRCL calculation 90 ml/min; Estimated Glomerular Filt Rate > 60; Glucose 101 mg/dL (65-110); Sodium 137 mmol/L (137-145)
== END 2023-01-13 11:40 | disposition home health service (06) ==
LOC: ANHED 18:24 → ANH3MEDSUR 01-11 10:44
PROVIDERS: Nurse Practitioner; Nurse Practitioner Family; Surgery; Admitting Provider Internal Medicine; Emergency Provider Physician Assistant; PCP Family Medicine; Visit Provider Chiropractor
PROC: (CPT 10060; principal; 2023-01-11 16:15)
DX: L02.11 Cutaneous abscess of neck (principal); L72.3 Sebaceous cyst; B95.4 Other streptococcus as the cause of diseases classified elsewhere; I10 Essential (primary) hypertension; D72.829 Elevated white blood cell count, unspecified; E78.00 Pure hypercholesterolemia, unspecified; K21.9 Gastro-esophageal reflux disease without esophagitis; E78.5 Hyperlipidemia, unspecified; Z87.898 Personal history of other specified conditions; Z79.82 Long term (current) use of aspirin; Z79.899 Other long term (current) drug therapy; Z82.49 Family history of ischemic heart disease and other diseases of the circulatory system
CPT/HCPCS: 10060; 36415; 72126; 80048; 80053; 80202; 82565; 83605; 83880; 85025; 85027; 85652; 86140; 87040; 87070; 87075; 87076; 87205; 96361; 96365; 96366; 99285; A9270; G0378; J0330; J0360; J1100; J1650; J2405; J2704; J3010; J3370; J7030; J7120; Q9967

== ENCOUNTER 2023-11-05 14:27 | Outpatient (CLI) | payer MEDICARE, OTHER, SELFPAY ==
[2023-11-05 15:02] LABS: Basophils Percent Auto 0.5 % (0.2-1.2); Eosinophils Absolute Auto 0.5 K/mm3 (0-0.3); Hematocrit 47.1 % (42.0-52.0); Hemoglobin 15.4 g/dL (14.0-18.0); Immature Granulocyte Absolute 0.04 K/mm3 (0.00-0.031); Immature Granulocyte Percent A 0.5 % (0-0.5); Lymphocytes Absolute Auto 1.86 K/mm3 (0.9-3.2); Lymphocytes Percent Auto 23.8 % (18.3-44.2); Mean Corpuscular HGB Conc 32.7 g/dl (32-36); Mean Corpuscular Hemoglobin 28.9 pg (26-34); Mean Corpuscular Volume 88.4 fl (80-100); Mean Platelet Volume 7.9 fl (7.4-10.4); Monocytes Absolute Auto 0.8 K/mm3 (0.1-0.6); Monocytes Percent Auto 10.6 % (2.6-8.5); Neutrophils Absolute Auto 4.6 K/mm3 (1.3-6.7); Neutrophils Percent Auto 58.6 % (45.5-73.1); Platelet Count Result 258 k/mm3 (150-375); Red Blood Count 5.33 M/mm3 (4.6-6.20); Red Cell Distribution Width 12.7 % (11.5-14.5); White Blood Count 7.8 K/mm3 (4.5-10.0)
[2023-11-05 15:16] LABS: Alanine Aminotransferase 21 U/L (6-50); Albumin Level 4.9 g/dL (3.5-5.1); Alkaline Phosphatase 68 U/L (38-126); Anion Gap 11 mmol/L (4-12); Aspartate Amino Transferase 26 U/L (17-59); Bilirubin,Total 0.6 mg/dL (0.2-1.3); Blood Urea Nitrogen 14 mg/dL (9-20); Carbon Dioxide 25 mmol/L (22-30); Chloride 103 mmol/L (98-107); Cholesterol 223 mg/dL (0-200); Estimated Glomerular Filt Rate > 60; Glucose 103 mg/dL (65-110); HDL Direct 60 mg/dL; Potassium 4.8 mmol/L (3.4-5.0); Sodium 139 mmol/L (137-145); Triglycerides 154 mg/dL (<150)
[2023-11-05 15:27] LABS: LDL Cholesterol Direct 125 mg/dL
[2023-11-05 15:47] LABS: Prostate Specific Antigen 9.3 ng/mL (< OR = 4.0)
== END 2023-11-05 14:28 | disposition home or self-care (01) ==
LOC: ANHLAB 14:39
PROVIDERS: PCP Nurse Practitioner Family; Visit Provider Nurse Practitioner Family
DX: E78.00 Pure hypercholesterolemia, unspecified (principal); I10 Essential (primary) hypertension; R97.20 Elevated prostate specific antigen [PSA]
CPT/HCPCS: 36415; 80053; 80061; 84153; 85025

== ENCOUNTER 2024-09-19 09:57 | Outpatient (CLI) | payer MEDICARE, SELFPAY ==
--- OUTSIDE RECORDS SUMMARY | 2024-09-19 10:41 | XMS_ITS | Clinical Summary ---
Author Organization [facility] Address [address] Attn: Epic Prelude ADT PRATIK JIMENEZ [id number] Care Team Providers Care Automation Engineering Technician Name Role Phone Unavailable Primary Care Provider Unavailabl e Social History Tobacco Use Types Packs/Day Years Used Date Smoking Tobacco: Never Assessed Sex and Gender Information Value Date Recorded Sex Assigned at Not on file Legal Sex Male 4:51 AM FINISH [employer] Gender Identity Not on file Sexual Orientation Not on file Plan of Treatment Health Maintenance Due Date Last Done Comments DTAP/TDAP/TD VACCINES (1 - Tdap) 1965 PNEUMOCOCCAL VACCINE 50+ YEARS (1 of 1 - PCV) 11/26/18 97 ZOSTER VACCINE (1 of 2) 1996 RSV VACCINE (60+ or ) (1 - 1-dose 75+ series) 2021 INFLUENZA VACCINE (#1) 2024
--- OUTSIDE RECORDS SUMMARY | 2024-09-19 10:41 | XMS_ITS | Encounter Summary ---
Author Organization [facility] / [facility] Address [address] [place] [id number] Care Team Providers Care Event Management Consultant Name Role Phone Cristy Christie MD Primary Care Provider [phone] Encounter Details Date Type Department Care Team (Late st Contact Info) Description 04/12/[address] [facility] Pre-Admission Testing [facility] [place], [place] [id number] Cooper Powers, RUBEN [address] [place], [place] [id number] Social History Tobacco Use Types Packs/Day Years Used Date Smoking Tobacco: Never Smokeless Tobacco: Never Alcohol Use Standard Drinks/Week Comments Never 0 (1 standard drink = 0.6 oz pur e alcohol) AUDIT-C Answer Date Recorded Q1: How often do you have a drink containing alc ohol? Never 04/09/2020 Average Number of Drinks Not on file 020 Frequency of Binge Drinking Not on file 03/17 Sex and Gender Information Value Date Recorded Sex Assigned at Not on file Legal Sex Male 11:23 AM CDT Gender Identity Not on file Sexual Orientation Not on file COVID-19 Exposure Response Date Recorded In the last month, have you been in contact with someone who was confirmed or suspected to have Coronavirus / COVID-19? No / Unsure 04/15/2020 5:24 AM CDT documented as of this encounter Plan of Treatment Not on file documented as of this encounter Results * PRE-SURGICAL/PRE-PROCEDURE CORONAVIRUS (COVID 19) (04/12/2020 9:15 AM CDT) CORONAVIRUS SARS COV 2 PCR (RESP) NOT DETECTED NOT DETECTED 04/13/2020 7:10 PM CDT [facility] Comment: A Not Detected (negative) test result for this test means that SARS- CoV-2 RNA was not present in the specimen above the limit of detection. A negative result does not rule out the possibility of COVID-19 and should not be used as the sole basis for treatment or patient management decisions. If COVID-19 is still suspected, based on exposure history together with other clinical findings, re-testing should be considered in consultation with public health authorities. Laboratory test results should always be considered in the context of clinical observations and epidemiological data in making a final diagnosis and patient management decisions. Please review the Fact Sheets and FDA authorized labeling available for health care providers and patients using the following websites: [email or web address]/[email or web address]-19/HCP/NAAT/fact-sheet2 [email or web address]://[email or web address]/home/Covid-19/Patients/NAAT/ fact-sheet2 This test has been authorized by the FDA under an Emergency Use Authorization (EUA) for use by authorized laboratories. Due to the current public health emergency, [facility] is receiving a high volume of samples from a wide variety of swabs and media for COVID-19 testing. In order to serve patients during this public health crisis, samples from appropriate clinical sources are being tested. Negative test results derived from specimens received in non-commercially manufactured viral collection and transport media, or in media and sample collection kits not yet authorized by FDA for COVID-19 testing should be cautiously evaluated and the patient potentially subjected to extra precautions such as additional clinical monitoring, including collection of an additional specimen. Methodology: Nucleic Acid Amplification Test (NAAT) includes PCR or TMA Additional information about COVID-19 can be found at the [facility] website: www.[email or web address].FanLib/Covid19. Test performed at [facility] [address] [place] [address] Director: JACK WELDON DO,MPH FIRST TEST YES 04/12/2020 1:31 PM CDT [facility] EMPLOYED IN HEALTHCARE NO 04/12/2020 1:31 PM CDT [facility] SYMPTOMATIC DEFINED BY CDC NO 04/12/2020 1:31 PM CDT [facility] DATE OF SYMPTOM ONSET UNKNOWN 04/12/2020 3:11 PM CDT [facility] HOSPITALIZATION STATUS NO 04/12/2020 1:31 PM CDT [facility] PATIENT IN ICU NO 04/12/2020 1:31 PM CDT [facility] RESIDENT OF [facility] CARE NO 04/12/2020 1:31 PM CDT [facility] UNKNOWN 04/12/2020 3:11 PM CDT [facility] PATIENT'S RACE WHITE OR 04/12/2020 1:31 PM CDT [facility] ETHNICITY NONHISPANIC 04/12/2020 1:31 PM CDT [facility] SOURCE (QST) NASOPHARYNGEAL SWAB 04/12/2020 1:31 PM CDT [facility] NASOPHARYNGEAL SWAB / Unknown 04/12/2020 9:15 AM CDT Cooper Powers DPM MICROBIOLOGY - NERNJ ORDERABLES Final Result [facility] [address] [place] [address], [place] [phone] [facility] [id number] [place] [id number], documented in this encounter Visit Diagnoses Diagnosis Preoperative testing- Primary Preoperative examination, unspecified documented in this encounter Additional Health Concerns Infection Onset Date Last Indicated Resolved Time COVID-19 Rule Out 04/12/2020 04/12/2020 04/13/2020 7:10 PM CDT documented as of this encounter Care Teams Event Management Consultant Relationship Specialty Start Date End Date Cristy Christie MD PCP - General FAMILY PRACTICE 02/13/20 documented as of this encounter
--- OUTSIDE RECORDS SUMMARY | 2024-09-19 10:41 | XMS_ITS | Clinical Summary ---
Author Organization [facility] Address [address] [place] [id number] Care Team Providers Care Rock Room Worker Name Role Phone Cristy Christie MD Primary Care Provider Allergies Active Allergy Reactions Criticality Noted Date Comments Ibuprofen Unknown 04/09/2020 Feels like fire ants are crawling on him if given nsaids Penicillins Anaphylaxis High 04/09/2020 Medications doxycycline hyclate 100 MG capsule Take 1 capsule by mouth daily. 0 Active lisinopril 10 MG tablet Take 10 mg by mouth daily. Takes 5mg or 10mg Bottoms out if too strong so takes blood pressure and follows parameters 0 Active acetaminophen [address] 625 mg rectally every 4 (four) hours as needed for Pain (arthrirtis tylenol- tolerates one tablet.). Active Multiple Vitamins-Mineral s (MULTIVITAMIN ADULT OR) Take 1 tablet by mouth daily. Active aspirin-acetamin ophen-caffeine 250-250-65 MG tablet Take 1 tablet by mouth every 6 (six) hours as needed for Pain. Active Family History Medical History Relation Comments No Known Problems Daughter CHF Father Hypertension Father Depression Mother commit suicide m other's day Stroke Mother Cancer Sister lymphoma, leukem ia Relation Status Comments Daughter Alive Father Mother Sister Social History Tobacco Use Types Packs/Day Years [...] on file Sexual Orientation Not on file Last Filed Vital Signs Vital Sign Reading Time Taken Comments Blood Pressure 193/91 04/15/2020 11:10 AM CDT Pulse 71 04/15/2020 11:10 AM CDT Temperature 36.7 C (98 F) 04/15/2020 11:10 AM CDT Respiratory Rate 18 04/15/2020 11:10 AM CDT Oxygen Saturation 98% 04/15/2020 11:10 AM CDT Inhaled Oxygen Concentration - - Weight 75.3 kg (166 lb 0.1 oz) 04/15/2020 5:50 A M CDT Height 188 cm (6' 2 ) 04/15/2020 5:50 AM CDT Body Mass Index 21.31 04/15/2020 5:50 AM CDT Plan of Treatment Health Maintenance Due Date Last Done Comments Hepatitis C 1963 DTaP, Tdap and Td Vaccines ( 1 - Tdap) 1965 Zoster Vaccines (1 of 2) 1996 Annual Medicare Wellness Visit 11/27/2011 Pneumococcal Vaccine: 65+ Ye ars (1 of 1 - PCV) 11/27/2011 RSV Immunization or 60+ Years (1 - 1-dose 75+ series) 2021 COVID-19 Vaccine ( - 2023-2 5 season) 2024 Influenza Adult (#1) 2024 Meningococcal B Vaccine Aged Out No l onger eligible based on patient's age to complete this topic Meningococcal Vaccine Aged Out No salomon ashley eligible based on patient's age to complete this topic RSV Immunizations Under 20 Months Aged Out No longer eligible based on patient's age to complete this topic Insurance [employer] [facility] Care Teams Rock Room Worker Relationship Specialty Start Date End Date Cristy Christie MD PCP - General FAMILY PRACTICE 02/13/20
--- OUTSIDE RECORDS SUMMARY | 2024-09-19 10:41 | XMS_ITS | Encounter Summary ---
Author Organization [employer] Address [address] [place] [address] Care Team Providers Care Medical Payment Poster Name Role Phone Unavailable Primary Care Provider Unavailabl e Encounter Details Date Type Department Care Team (Latest Contact Info) Description 08/12/2002 Outpatient Historical [facility] [place] [id number] [facility] [place] [address] [place] [address] OPEN WOUND OF LIP (Primary Dx) Social History Tobacco Use Types Packs/Day Years Used Date Smoking Tobacco: Never Assessed Sex and Gender Information Value Date Recorded Sex Assigned at Not on file Legal Sex Male 4:51 AM BOAT HOP Gender Identity Not on file Sexual Orientation Not on file documented as of this encounter Plan of Treatment Not on file documented as of this encounter Visit Diagnoses Diagnosis Open wound of lip, without mention of complication- Primary documented in this encounter
[2024-09-19 11:11] LABS: Alanine Aminotransferase 20 U/L (6-50); Albumin Level 4.6 g/dL (3.5-5.1); Alkaline Phosphatase 58 U/L (38-126); Anion Gap 11 mmol/L (4-12); Aspartate Amino Transferase 25 U/L (17-59); Bilirubin,Total 0.5 mg/dL (0.2-1.3); Blood Urea Nitrogen 12 mg/dL (9-20); Calcium 9.9 mg/dL (8.4-10.2); Carbon Dioxide 24 mmol/L (22-30); Chloride 100 mmol/L (98-107); Estimated Glomerular Filt Rate > 60; Glucose 102 mg/dL (65-110); Potassium 4.7 mmol/L (3.4-5.0); Sodium 135 mmol/L (137-145)
== END 2024-09-19 09:58 | disposition home or self-care (01) ==
PROVIDERS: PCP Nurse Practitioner Family; Visit Provider Nurse Practitioner Family
DX: I10 Essential (primary) hypertension (principal)
CPT/HCPCS: 36415; 80053